=== PATIENT | male | born 1960 | race Two or more races ===

== ENCOUNTER 2017-11-20 10:58 | Inpatient (IN) | payer OTHER ==
[2017-11-20] MEDS: morphine 2 MG INJ IV (12:29)
[2017-11-20] MEDS: DEXTROSE 5%-0.45% NACL 1,000 ML IV ×2 (12:33→21:30)
[2017-11-20] MEDS ORDERED: PANTOPRAZOLE 40 MG INJ IV (12:45)
[2017-11-20] MEDS ORDERED: LORAZEPAM 2 MG INJ IV (13:00)
[2017-11-20] MEDS ORDERED: ONDANSETRON 4 MG INJ IV (13:00)
[2017-11-20] MEDS ORDERED: NACL 0.9% 3 ML SYG IV (13:00)
[2017-11-20] MEDS ORDERED: morphine 2 MG INJ IV (13:00)
[2017-11-20 13:20] LABS: ADD MAN DIFF? NO
[2017-11-20 13:24] LABS: WHITE BLOOD COUNT 5.6 10^3/ul (4.8-10.8)
[2017-11-20 13:24] LABS: BASOPHILS % 0.4 % (0.0-2.0); EOSINOPHILS % 0.5 % (0.0-7.0); HEMATOCRIT 38.8 % (42.0-52.0); LYMPHOCYTES # 1.3 10^3/ul (0.8-2.9); LYMPHOCYTES % 22.4 % (15.0-51.0); MEAN CORPUSCULAR HEMOGLOBIN 31.2 pg (29.0-33.0); MEAN CORPUSCULAR HGB CONC 33.5 g/dl (32.0-37.0); MONOCYTE # 0.4 10^3/ul (0.3-0.9); MONOCYTES % 7.3 % (0.0-11.0); NEUTROPHIL # 3.9 10^3/ul (1.6-7.5); NEUTROPHILS % 69.2 % (39.0-77.0); PLATELET COUNT 131 10^3/UL (140-415); RED BLOOD COUNT 4.17 10^6/ul (4.70-6.10); RED CELL DISTRIBUTION WIDTH 13.7 % (11.5-14.5)
[2017-11-20 13:38] LABS: ALANINE AMINOTRANSFERASE 54 IU/L (13-69); ALBUMIN 4.1 g/dl (3.3-4.9); ALBUMIN/GLOBULIN RATIO 1.24; ALKALINE PHOSPHATASE 64 IU/L (42-121); ANION GAP 15 (8-16); ASPARTATE AMINO TRANSFERASE 66 IU/L (15-46); BILIRUBIN,INDIRECT 0.4 mg/dl (0-1.1); BILIRUBIN,TOTAL 0.4 mg/dl (0.2-1.3); BLOOD UREA NITROGEN 8 mg/dl (7-20); CALCIUM 8.9 mg/dl (8.4-10.2); CARBON DIOXIDE 27 mmol/L (21-31); CHLORIDE 104 mmol/L (97-110); CREATININE 0.53 mg/dl (0.61-1.24); GLUCOSE 101 mg/dl (70-220); LIPASE 145 U/L (23-300); SODIUM 142 mmol/L (135-144); TOTAL PROTEIN 7.4 g/dl (6.1-8.1)
[2017-11-20 13:39] LABS: CHOL/HDL RATIO 1.3 RATIO; HDL CHOLESTEROL 110 mg/dl (28-71); LDL CHOLESTEROL,CALCULATED 23 mg/dl; TRIGLYCERIDES 80 mg/dl (0-149)
[2017-11-20 13:39] LABS: CHOLESTEROL 149 mg/dl (100-200)
[2017-11-20 13:42] LABS: INR 0.81; PROTIME 11.2 Sec (11.9-14.9); PT RATIO 0.9
[2017-11-20 13:43] LABS: PARTIAL THROMBOPLASTIN TIME 25.3 Sec (25.0-35.0)
[2017-11-20 13:43] LABS: LACTIC ACID 2.2 mmol/L (0.5-2.0)
[2017-11-20] MEDS: PANTOPRAZOLE 40 MG INJ IV (13:53)
[2017-11-20] MEDS: CYCLOBENZAPRINE 10 MG TAB PO (13:53)
[2017-11-20 14:04] LABS: TROPONIN-I < 0.012 ng/ml (0.000-0.120)
[2017-11-20 15:19] LABS: TROPONIN-I < 0.012 ng/ml (0.000-0.120)
[2017-11-20] MEDS: HYDROCODONE/APAP (5/325) TAB PO (15:46)
[2017-11-20] MEDS: LORAZEPAM 2 MG INJ IV (18:33)
[2017-11-20] MEDS: LORAZEPAM 1 MG TAB PO (21:30)
[2017-11-21 01:44] LABS: TROPONIN-I < 0.012 ng/ml (0.000-0.120)
[2017-11-21] MEDS: DEXTROSE 5%-0.45% NACL 1,000 ML IV ×2 (05:18→14:05)
[2017-11-21] MEDS: SOD CHLORIDE 0.9% 100 ML (08:16)
[2017-11-21] MEDS: IOHEXOL 300MG/ML 150 ML BTL (08:17)
[2017-11-21] MEDS: LORAZEPAM 1 MG TAB PO ×2 (08:36→20:39)
[2017-11-21] MEDS: PANTOPRAZOLE 40 MG INJ IV (08:36)
[2017-11-21 08:43] LABS: ADD MAN DIFF? NO
[2017-11-21 08:49] LABS: EOSINOPHILS # 0.2 10^3/ul (0.0-0.5); HEMOGLOBIN 12.5 g/dl (14.0-18.0); LYMPHOCYTES # 1.3 10^3/ul (0.8-2.9); LYMPHOCYTES % 32.4 % (15.0-51.0); MEAN CORPUSCULAR HEMOGLOBIN 31.1 pg (29.0-33.0); MEAN CORPUSCULAR HGB CONC 32.9 g/dl (32.0-37.0); MEAN CORPUSCULAR VOLUME 94.5 fl (82.0-101.0); MEAN PLATELET VOLUME 10.6 fl (7.4-10.4); MONOCYTE # 0.5 10^3/ul (0.3-0.9); NEUTROPHILS % 50.4 % (39.0-77.0); PLATELET COUNT 116 10^3/UL (140-415); RED BLOOD COUNT 4.02 10^6/ul (4.70-6.10); RED CELL DISTRIBUTION WIDTH 13.7 % (11.5-14.5)
[2017-11-21 09:00] LABS: HEMOGLOBIN A1C 4.9 % (0-5.9)
[2017-11-21 09:11] LABS: ALANINE AMINOTRANSFERASE 35 IU/L (13-69); ALBUMIN 3.4 g/dl (3.3-4.9); ALBUMIN/GLOBULIN RATIO 1.21; ALKALINE PHOSPHATASE 47 IU/L (42-121); ANION GAP 7 (8-16); ASPARTATE AMINO TRANSFERASE 52 IU/L (15-46); BILIRUBIN,INDIRECT 1.2 mg/dl (0-1.1); BILIRUBIN,TOTAL 1.2 mg/dl (0.2-1.3); BLOOD UREA NITROGEN 5 mg/dl (7-20); CALCIUM 8.7 mg/dl (8.4-10.2); CARBON DIOXIDE 31 mmol/L (21-31); CHLORIDE 105 mmol/L (97-110); CREATININE 0.64 mg/dl (0.61-1.24); GLUCOSE 105 mg/dl (70-220); MAGNESIUM 1.9 mg/dl (1.7-2.5); POTASSIUM 4.3 mmol/L (3.5-5.1); SODIUM 139 mmol/L (135-144); TOTAL PROTEIN 6.2 g/dl (6.1-8.1)
[2017-11-21 13:47] LABS: ADD UMIC NO; UR ASCORBIC ACID NEGATIVE (NEGATIVE); UR BILIRUBIN (Dip) NEGATIVE (NEGATIVE); UR BLOOD (Dip) NEGATIVE (NEGATIVE); UR CLARITY CLEAR (CLEAR); UR COLOR STRAW (YELLOW); UR GLUCOSE (Dip) NEGATIVE (NEGATIVE); UR KETONES (Dip) NEGATIVE (NEGATIVE); UR LEUKOCYTE ESTERASE (Dip) NEGATIVE Leu/ul (NEGATIVE); UR NITRITE (Dip) NEGATIVE (NEGATIVE); UR SPECIFIC GRAVITY (Dip) 1.025 (1.003-1.030); UR TOTAL PROTEIN (Dip) NEGATIVE (NEGATIVE); UR UROBILINOGEN (Dip) 1+ mg/dL (NEGATIVE)
[2017-11-21] MEDS: SOD CHLORIDE 0.9% 1,000 ML IV (15:07)
[2017-11-21] MEDS ORDERED: CIPROFLOXACIN 500 MG TAB PO (18:00)
[2017-11-22] MEDS: ZOLPIDEM 5 MG TAB PO (00:47)
[2017-11-22 07:14] LABS: ADD MAN DIFF? NO
[2017-11-22 07:18] LABS: BASOPHILS % 0.8 % (0.0-2.0); EOSINOPHILS # 0.3 10^3/ul (0.0-0.5); EOSINOPHILS % 6.5 % (0.0-7.0); HEMATOCRIT 36.1 % (42.0-52.0); HEMOGLOBIN 12.1 g/dl (14.0-18.0); LYMPHOCYTES # 1.4 10^3/ul (0.8-2.9); LYMPHOCYTES % 34.8 % (15.0-51.0); MEAN CORPUSCULAR HEMOGLOBIN 30.9 pg (29.0-33.0); MEAN CORPUSCULAR HGB CONC 33.5 g/dl (32.0-37.0); MEAN CORPUSCULAR VOLUME 92.1 fl (82.0-101.0); MEAN PLATELET VOLUME 10.7 fl (7.4-10.4); MONOCYTE # 0.4 10^3/ul (0.3-0.9); MONOCYTES % 10.8 % (0.0-11.0); NEUTROPHIL # 1.9 10^3/ul (1.6-7.5); NEUTROPHILS % 46.8 % (39.0-77.0); PLATELET COUNT 128 10^3/UL (140-415); RED BLOOD COUNT 3.92 10^6/ul (4.70-6.10); RED CELL DISTRIBUTION WIDTH 13.4 % (11.5-14.5)
[2017-11-22] MEDS: ACETAMINOPHEN 325 MG TAB PO (07:28)
[2017-11-22 07:57] LABS: ANION GAP 11 (8-16); BLOOD UREA NITROGEN 3 mg/dl (7-20); CALCIUM 8.8 mg/dl (8.4-10.2); CARBON DIOXIDE 27 mmol/L (21-31); CHLORIDE 103 mmol/L (97-110); CREATININE 0.57 mg/dl (0.61-1.24); GLUCOSE 87 mg/dl (70-220); MAGNESIUM 1.8 mg/dl (1.7-2.5); PHOSPHORUS 3.1 mg/dl (2.5-4.9); POTASSIUM 3.6 mmol/L (3.5-5.1); SODIUM 137 mmol/L (135-144)
[2017-11-22] MEDS: LORAZEPAM 1 MG TAB PO (08:25)
[2017-11-22] MEDS: PANTOPRAZOLE 40 MG INJ IV (08:25)
[2017-11-22] MEDS: HYDROCODONE/APAP (5/325) TAB PO (08:25)
== END 2017-11-22 13:02 | disposition home or self-care (01) | DRG 880 ==
LOC: PP2 10:58
DX: F41.9 Anxiety disorder, unspecified (principal); F10.20 Alcohol dependence, uncomplicated; F39 Unspecified mood [affective] disorder; R51 Headache; R10.9 Unspecified abdominal pain
CPT/HCPCS: 74177; 80048; 80053; 80061; 81003; 83036; 83605; 83690; 83735; 84100; 84443; 84484; 85025; 85610; 85730; 87040; 87081; 93306